=== PATIENT | female | born 1930 | race Caucasian/White ===

== ENCOUNTER 2016-08-06 14:39 | Emergency (ER) | payer SELFPAY ==
[~2016-08-06] VITALS: Ht 170.2 cm; Wt 85.0 kg
[2016-08-06 14:55] VITALS: Ht 170.2 cm; Wt 85.0 kg
[2016-08-06] MEDS ORDERED: IPRATROPIUM (NEB) 0.5 MG/2.5 ML AMP INH STA (15:20)
[2016-08-06] MEDS ORDERED: ASPIRIN 81 MG TAB PO STA (15:20)
[2016-08-06] MEDS ORDERED: ALBUTEROL 0.083% (NEB) 2.5 MG/3 ML AMP INH STA ×2 (15:20→16:59)
[2016-08-06] MEDS ORDERED: METHYLPREDNISOLONE 125 MG INJ IV STA (15:20)
[2016-08-06 15:28] LABS: ADD SCAN DIFF NO
[2016-08-06 15:31] LABS: BASOPHILS % 0.5 % (0.0-2.0); EOSINOPHILS # 0.1 10^3/ul (0.0-0.5); EOSINOPHILS % 0.9 % (0.0-7.0); HEMATOCRIT 45.5 % (37.0-47.0); HEMOGLOBIN 14.4 g/dl (12.0-16.0); LYMPHOCYTES # 3.8 10^3/ul (0.8-2.9); LYMPHOCYTES % 46.7 % (15.0-51.0); MEAN CORPUSCULAR HEMOGLOBIN 28.4 pg (29.0-33.0); MEAN CORPUSCULAR HGB CONC 31.6 g/dl (32.0-37.0); MEAN CORPUSCULAR VOLUME 89.7 fl (82.0-101.0); MEAN PLATELET VOLUME 11.7 fl (7.4-10.4); MONOCYTE # 0.5 10^3/ul (0.3-0.9); NEUTROPHIL # 3.8 10^3/ul (1.6-7.5); NEUTROPHILS % 45.8 % (39.0-77.0); PLATELET COUNT 245 10^3/UL (140-415); RED BLOOD COUNT 5.07 10^6/ul (4.20-5.40); RED CELL DISTRIBUTION WIDTH 15.9 % (11.5-14.5); WHITE BLOOD COUNT 8.2 10^3/ul (4.8-10.8)
[2016-08-06 15:48] LABS: INR 0.98
[2016-08-06 15:49] LABS: PARTIAL THROMBOPLASTIN TIME 28.9 Sec (25.0-35.0)
[2016-08-06 16:01] LABS: ALBUMIN 4.3 g/dl (3.3-4.9); CHLORIDE 102 mmol/L (97-110)
[2016-08-06 16:02] LABS: ADD UMIC YES; URINE BILIRUBIN (Dip) NEGATIVE (NEGATIVE); URINE BLOOD (Dip) TRACE (NEGATIVE); URINE COLOR LT. YELLOW (YELLOW); URINE GLUCOSE (Dip) NEGATIVE (NEGATIVE); URINE KETONES (Dip) NEGATIVE (NEGATIVE); URINE LEUKOCYTE ESTERASE (Dip) TRACE (NEGATIVE); URINE NITRITE (Dip) NEGATIVE (NEGATIVE); URINE TOTAL PROTEIN (Dip) NEGATIVE (NEGATIVE); URINE UROBILINOGEN (Dip) 0.2 E.U./dL (0.1-1.0)
[2016-08-06 16:02] LABS: POTASSIUM 4.2 mmol/L (3.5-5.1); SODIUM 138 mmol/L (135-144)
[2016-08-06 16:04] LABS: ALBUMIN/GLOBULIN RATIO 1.02; ALKALINE PHOSPHATASE 106 IU/L (42-121); ANION GAP 15 (8-16); ASPARTATE AMINO TRANSFERASE 32 IU/L (15-46); BILIRUBIN,INDIRECT 0.2 mg/dl (0-1.1); BILIRUBIN,TOTAL 0.2 mg/dl (0.2-1.3); CARBON DIOXIDE 25 mmol/L (21-31); CREATININE 0.76 mg/dl (0.44-1.00); TOTAL PROTEIN 8.5 g/dl (6.1-8.1)
[2016-08-06 16:05] LABS: ALANINE AMINOTRANSFERASE 19 IU/L (13-69); BLOOD UREA NITROGEN 18 mg/dl (7-20); CALCIUM 9.3 mg/dl (8.4-10.2); GLUCOSE 113 mg/dl (70-220)
[2016-08-06 16:12] LABS: B-TYPE NATRIURETIC PEPTIDE 993 PG/ML (0-450)
[2016-08-06 16:14] LABS: BACTERIA,URINE FEW; SQUAMOUS EPITHELIAL CELL,UR MANY; URINE RBCS 0-2 /HPF (0)
[2016-08-06 16:17] LABS: TROPONIN-I < 0.012 ng/ml (0.00-0.12)
--- NOTE | 2016-08-06 16:44 | RADRPT ---
PROCEDURE: XR Chest. CLINICAL INDICATION: Shortness of breath. TECHNIQUE: Portable AP upright view of the chest was obtained. COMPARISON: None. FINDINGS: The cardiomediastinal silhouette is mildly enlarged with a single chamber right subclavian approach cardiac pacemaker. Areas of bronchiectasis are suspected scattered throughout both lungs and there is a calcified peripheral left upper lobe nodule of 8 mm most likely a granuloma. Hyperinflation of the lungs with flattening of the diaphragm cannot exclude chronic obstructive pulmonary disease. T here is no evidence for pleural effusion, pneumothorax or pulmonary vascular congestion. The osseou s structures are intact with no evidence for acute abnormality. Calcification is seen within the aor ta. RPTAT:HJJR IMPRESSION: 1. Hyperinflation of the lungs cannot exclude chronic obstructive pulmonary disease. 2. Calcified granuloma left upper lobe. 3. Suspected scattered bronchiectasis changes. 4. Mild cardiac silhouette enlargement and cardiac pacemaker without congestive heart failure mohamud rn. 5. Aortic atherosclerosis is present. Physician Chito Date Time Electronically viewed and signed by Physician Chito on 08/06/2016 16:44 /
[2016-08-06] MEDS ORDERED: AZITHROMYCIN 250 MG TAB PO STA (16:59)
[2016-08-06] MEDS ORDERED: ALBU8.5H3 INH (17:13)
[2016-08-06] MEDS ORDERED: AZIT250T94 PO (17:13)
[2016-08-06] MEDS ORDERED: PRED20TA PO (17:13)
[2016-08-06 17:27] VITALS: BP 118/84; PULSE 66; RESP 18; TEMP 98.2
--- NOTE | 2016-08-06 17:56 | ERD ---
ER Documentation Chief Complaint Date/Time DATE: 08/06/16 TIME: 17:38 Chief Complaint BIB RA 90 FAMILY CALLED 911 DUE TO "HIGH BP" AND WHEEZING HPI 85-year-old female with a history of hypertension, pacemaker, 3 strokes with mild left-sided deficits, presenting with ambulance for shortness of breath. She states that for the past 3-4 days she has not been feeling well and has had a cough with shortness of breath. She has associated chest pain that's described as a tightness that is constant. She has a wet cough but has not had phlegm production. She endorses chills but no measured fevers. She denies headache, abdominal pain, diarrhea or constipation. She also complains of difficulty urinating but is able to urinate. Patient is from [place] and arrived about 2 weeks ago. ROS All systems reviewed and are negative except as per history of present illness. Medications Home Meds Active Scripts Albuterol Sulfate* (Proair HFA*) 8.5 Gm Hfa.aer.ad, 2 PUFF INH Q4H Y for WHEEZING AND SOB, #1 INHALER Prov:CURT COFFEY MD 08/06/16 Prednisone* (Prednisone*) 20 Mg Tab, 40 MG PO DAILY for 4 Days, TAB start 08/07 Prov:CURT COFFEY MD 08/06/16 Azithromycin* (Zithromax*) 250 Mg Tablet, 250 MG PO DAILY for 4 Days, TAB start 07/28/16 Prov:CURT COFFEY MD 08/06/16 PMhx/Soc History of Surgery: Yes (PACEMAKER, CATARACT SURGERY L EYE, POLYPECTOMY) Anesthesia Reaction: No Hx Neurological Disorder: Yes (CVA X3 2004,2011,2014) Hx Respiratory Disorders: No Hx Cardiac Disorders: Yes (HTN) Hx Psychiatric Problems: No Hx Miscellaneous Medical Probl: Yes (DM) Hx Alcohol Use: Yes (OCCASIONALLY) Hx Substance Use: No Hx Tobacco Use: No Smoking Status: Never smoker FmHx Family History: No diabetes Physical Exam Vitals Vital Signs Date Time Temp Pulse Resp B/P Pulse Ox O2 Delivery O2 Flow Rate FiO2 08/06/16 17:27 98.2 66 18 118/84 100 Room Air 08/06/16 17:16 67 20 97 21 08/06/16 16:10 64 22 98 21 08/06/16 15:27 Nasal Cannula 08/06/16 15:16 67 151/71 08/06/16 14:55 98.2 64 20 144/74 96 Physical Exam Const: No apparent distress, well-appearing, nontoxic, speaking in full sentences Head: Atraumatic Eyes: Normal Conjunctiva ENT: Normal External Ears, Nose and Mouth. Neck: Full range of motion. No JVD. No meningismus. Resp: No tachypnea. Diffuse expiratory coarse wheezing, no rales Cardio: Regular rate and rhythm, no murmurs. 2+ distal pulses, equal bilaterally Abd: Soft, non tender, non distended. Normal bowel sounds Skin: No petechiae or rashes Back: No midline or flank tenderness Ext: No cyanosis, or edema Neur: Awake and alert and oriented 3, no facial asymmetry, strength and sensations intact in all 4 extremities Psych: Normal Mood and Affect Result Diagram: 08/06/16 1520 08/06/16 1520 Results 24 hrs Laboratory Tests Test 08/06/16 15:20 08/06/16 15:55 White Blood Count 8.210^3/ul Red Blood Count 5.0710^6/ul Hemoglobin 14.4g/dl Hematocrit 45.5% Mean Corpuscular Volume 89.7fl Mean Corpuscular Hemoglobin 28.4pg Mean Corpuscular Hemoglobin Concent 31.6g/dl Red Cell Distribution Width 15.9% Platelet Count 47736^3/UL Mean Platelet Volume 11.7fl Neutrophils % 45.8% Lymphocytes % 46.7% Monocytes % 6.0% Eosinophils % 0.9% Basophils % 0.5% Nucleated Red Blood Cells % 0.0/100WBC Neutrophils # 3.810^3/ul Lymphocytes # 3.810^3/ul Monocytes # 0.510^3/ul Eosinophils # 0.110^3/ul Basophils # 0.010^3/ul Nucleated Red Blood Cells # 0.010^3/ul Prothrombin Time 13.0Sec Prothrombin Time Ratio 1.0 INR International Normalized Ratio 0.98 Activated Partial Thromboplast Time 28.9Sec Sodium Level 138mmol/L Potassium Level 4.2mmol/L Chloride Level 102mmol/L Carbon Dioxide Level 25mmol/L Anion Gap 15 Blood Urea Nitrogen 18mg/dl Creatinine 0.76mg/dl Glucose Level 113mg/dl Calcium Level 9.3mg/dl Total Bilirubin 0.2mg/dl Direct Bilirubin 0.00mg/dl Indirect Bilirubin 0.2mg/dl Aspartate Amino Transf (AST/SGOT) 32IU/L Alanine Aminotransferase (ALT/SGPT) 19IU/L Alkaline Phosphatase 106IU/L Troponin I < 0.012ng/ml B-Type Natriuretic Peptide 993PG/ML Total Protein 8.5g/dl Albumin 4.3g/dl Globulin 4.20g/dl Albumin/Globulin Ratio 1.02 Urine Color LT. YELLOW Urine Clarity HAZY Urine pH 5.5 Urine Specific [place] 1.015 Urine Ketones NEGATIVE Urine Nitrite NEGATIVE Urine Bilirubin NEGATIVE Urine Urobilinogen 0.2 E.U./dL Urine Leukocyte Esterase TRACE Urine Microscopic RBC 0-2/HPF Urine Microscopic WBC 0-2/HPF Urine Squamous Epithelial Cells MANY Urine Bacteria FEW Urine Hemoglobin TRACE Urine Glucose NEGATIVE% Urine Total Protein NEGATIVE Current Medications Medications (Trade) Dose Ordered Sig/Anders Route PRN Reason Start Time Stop Time Status Last Admin Dose Admin Albuterol (Proventil 0.083% (Neb)) 5 mg ONCE STAT INH 08/06/16 15:20 08/06/16 15:24 DC 08/06/16 16:09 Ipratropium [place] (Atrovent 0.02% (Neb)) 0.5 mg ONCE STAT INH 08/06/16 15:20 08/06/16 15:24 DC 08/06/16 16:09 Methylprednisolone Sodium Succinate (Solu-Medrol) 125 mg ONCE STAT IV 08/06/16 15:20 08/06/16 15:24 DC 08/06/16 15:37 Aspirin (Aspirin) 162 mg ONCE STAT PO 08/06/16 15:20 08/06/16 15:24 DC 08/06/16 15:37 Albuterol (Proventil 0.083% (Neb)) 5 mg ONCE STAT INH 08/06/16 16:59 08/06/16 17:00 DC 08/06/16 17:16 Azithromycin (Zithromax) 500 mg ONCE STAT PO 08/06/16 16:59 08/06/16 17:00 DC Procedures/MDM EMERGENT LABS AND DIAGNOSTIC STUDIES: Lab Results above were reviewed and interpreted by me. No significant abnormalities other than mild elevation in BNP 12-lead EKG was interpreted by Anabela Coffey MD: V paced rhythm, demand pacemaker Left bundle branch block pattern No acute ST or T wave changes suggestive of acute ischemia or STEMI. Radiology Results as interpreted by Radiology below were reviewed by Lizzette Coffey MD: Chest x-ray: IMPRESSION: 1. Hyperinflation of the lungs cannot exclude chronic obstructive pulmonary disease. 2. Calcified granuloma left upper lobe. 3. Suspected scattered bronchiectasis changes. 4. Mild cardiac silhouette enlargement and cardiac pacemaker without congestive heart failure pattern. 5. Aortic atherosclerosis is present. Physician Chito Date Time Electronically viewed and signed by Vamsi Milligan Physician on 08/06/2016 16:44 Initial Nursing notes reviewed. Previous Medical Records requested via the Electronic Health Record. EMERGENCY DEPARTMENT COURSE / MEDICAL DECISION MAKING: Patient is presenting with symptoms consistent with bronchitis, likely viral in etiology. Her vitals are stable without hypoxia or fever. I have a low suspicion for pneumonia. Chest x-ray shows changes consistent with COPD. The patient does endorse secondhand smoke for many years of her life. However she has never had wheezing or use an inhaler. Her BNP was elevated but I do not think her symptoms today are secondary to CHF. I have a low suspicion for aortic dissection, acute coronary syndrome, or pulmonary embolism. She was given med neb treatments with improvement. Her labs showed no other abnormalities. Her urinalysis did not indicate UTI. She was given steroids and azithromycin. Patients symptoms have stabilized while in the department after therapy. Vitals and respiratory status are stable. Patient is appropriate for outpatient supportive treatment and continued follow up with PCP in the next 2 days. If symptoms are not improving or worsening, patient instructed to return to ED for repeat evaluation. She will be discharged with prednisone, albuterol, and azithromycin. Patient's blood pressure was elevated (>120/80) but appears stable without evidence of hypertensive emergency or urgency. The patient was counseled about the risks of hypertension and urged to pursue outpatient monitoring and therapy within a week with their primary care physician. Departure Diagnosis: Primary Impression: Bronchitis, acute, with bronchospasm Additional Impression: Asymptomatic hypertension Condition: Stable Patient Instructions: Bronchitis With Wheezing (Adult), Hypertension, Established Referrals: COMMUNITY CLINICS YOU HAVE RECEIVED A MEDICAL SCREENING EXAM AND THE RESULTS INDICATE THAT YOU DO NOT HAVE A CONDITION THAT REQUIRES URGENT TREATMENT IN THE EMERGENCY DEPARTMENT. FURTHER EVALUATION AND TREATMENT OF YOUR CONDITION CAN WAIT UNTIL YOU ARE SEEN IN YOUR DOCTORS OFFICE WITHIN THE NEXT 1-2 DAYS. IT IS YOUR RESPONSIBILITY TO MAKE AN APPOINTMENT FOR FOLOW-UP CARE. IF YOU HAVE A PRIMARY DOCTOR --you should call your primary doctor and schedule an appointment IF YOU DO NOT HAVE A PRIMARY DOCTOR YOU CAN CALL OUR PHYSICIAN REFERRAL HOTLINE AT IF YOU CAN NOT AFFORD TO SEE A PHYSICIAN YOU CAN CHOSE FROM THE FOLLOWING [facility] [address] [facility]. [facility] [address] [facility] [address] [facility] [facility] [address] [facility] [facility] [address] [facility]. [facility]. [address] Additional Instructions: Return to the ER for any worsening symptoms. Follow-up with a doctor in 1-2 days. CURT COFFEY MD Aug 06, 2016 17:56
[2016-08-06] MEDS ORDERED: [UNRECOGNIZED DRUG - OTHER] PO (18:06)
[2016-08-06] MEDS ORDERED: VALS160T20 PO (18:08)
[2016-08-06] MEDS ORDERED: NIFE10CA19 PO (18:08)
[2016-08-06] MEDS ORDERED: CLOP75TA4 PO (18:09)
[2016-08-06] MEDS ORDERED: TORS5TAB10 PO (18:09)
[2016-08-06] MEDS ORDERED: BETASERON PO (18:15)
[2016-08-06] MEDS ORDERED: [UNRECOGNIZED DRUG - CODE] PO (18:16)
[2016-08-06] MEDS ORDERED: METO-448 PO (18:17)
== END 2016-08-06 17:49 | disposition home or self-care (01) ==
LOC: E/R 14:39
DX: J20.9 Acute bronchitis, unspecified (principal); I10 Essential (primary) hypertension; E11.9 Type 2 diabetes mellitus without complications; Z95.0 Presence of cardiac pacemaker
CPT/HCPCS: 71010; 80053; 81001; 81003; 83880; 84484; 85025; 85610; 85730; 93005; 94640; 94664; J2930; 36415; 96374

== ENCOUNTER 2016-12-03 10:37 | Inpatient (IN) | payer MEDICAID ==
[~2016-12-03] VITALS: Ht 152.4 cm; Wt 77.3 kg
[~2016-12-03 10:37] MED LIST: ALBU8.5H3 INH; AZIT250T94 PO; BETASERON PO; CLOP75TA4 PO; METO-448 PO; NIFE10CA19 PO; PRED20TA PO; TORS5TAB10 PO; VALS160T20 PO; [UNRECOGNIZED DRUG - CODE] PO; [UNRECOGNIZED DRUG - OTHER] PO
[2016-12-03 10:59] LABS: BASOPHILS % 0.5 % (0.0-2.0); EOSINOPHILS # 0.1 10^3/ul (0.0-0.5); EOSINOPHILS % 0.8 % (0.0-7.0); HEMATOCRIT 40.8 % (37.0-47.0); HEMOGLOBIN 13.2 g/dl (12.0-16.0); LYMPHOCYTES # 2.5 10^3/ul (0.8-2.9); LYMPHOCYTES % 41.3 % (15.0-51.0); MEAN CORPUSCULAR HEMOGLOBIN 29.4 pg (29.0-33.0); MEAN CORPUSCULAR HGB CONC 32.4 g/dl (32.0-37.0); MEAN CORPUSCULAR VOLUME 90.9 fl (82.0-101.0); MEAN PLATELET VOLUME 11.2 fl (7.4-10.4); MONOCYTE # 0.5 10^3/ul (0.3-0.9); MONOCYTES % 7.4 % (0.0-11.0); NEUTROPHILS % 49.8 % (39.0-77.0); PLATELET COUNT 191 10^3/UL (140-415); RED BLOOD COUNT 4.49 10^6/ul (4.20-5.40); RED CELL DISTRIBUTION WIDTH 15.6 % (11.5-14.5); WHITE BLOOD COUNT 6.1 10^3/ul (4.8-10.8)
[2016-12-03] MEDS ORDERED: ASPIRIN 81 MG TAB PO STA (11:20)
[2016-12-03] MEDS ORDERED: NITROGLYCERIN 2% 1 GM OINT PKT TD STA (11:20)
--- NOTE | 2016-12-03 11:22 | ERA ---
ER Documentation Chief Complaint Date/Time DATE: 12/03/16 TIME: 11:19 Chief Complaint CHEST PAIN / SOB HPI 86-year-old female Tunisian-speaking, family member is acting as an traffic control technician. The patient starts to explain that she started describe chest pressure that started yesterday evening that feels like a heaviness on her chest. She denies any migratory and her back pain no fevers or chills no cough. She states mild improvement with aspirin and nitro via EMS. ROS All systems reviewed and are negative except as per history of present illness. Medications Home Meds Active Scripts Albuterol Sulfate* (Proair HFA*) 8.5 Gm Hfa.aer.ad, 2 PUFF INH Q4H Y for WHEEZING AND SOB, #1 INHALER Prov:CURT METZGER MD 08/06/16 Prednisone* (Prednisone*) 20 Mg Tab, 40 MG PO DAILY for 4 Days, TAB start 08/07 Prov:CURT METZGER MD 08/06/16 Azithromycin* (Zithromax*) 250 Mg Tablet, 250 MG PO DAILY for 4 Days, TAB start 07/28/16 Prov:CURT METZGER MD 08/06/16 Reported Medications Metoprolol Tartrate* (Lopressor*) 25 Mg Tab, 12.5 MG PO DAILY Y for PRN, #60 TAB 08/06/16 Tolbutamide (Tolbutamide) Unknown Strength Tablet, MG PO DAILY Y for PRN, TAB 08/06/16 [Betaseron] No Conflict Check, PO BID TAKE 1/2 TAB 08/06/16 Clopidogrel Bisulfate* (Clopidogrel Bisulfate*) 75 Mg Tablet, 75 MG PO DAILY, # 30 TAB 08/06/16 Torsemide (Torsemide) Unknown Strength Tablet, 1 TAB PO DAILY, TAB 08/06/16 Valsartan* (Diovan*) 160 Mg Tablet, 80 MG PO BID, TAB 08/06/16 Nifedipine* (Procardia*) 10 Mg Capsule, 10 MG PO Q6 Y for PRN, CAP 08/06/16 [Cordicet] No Conflict Check, PO DAILY Y for PRN 08/06/16 Allergies Allergies: Coded Allergies: No Known Allergy (Unverified , 08/06/16) PMhx/Soc History of Surgery: Yes (PACEMAKER, CATARACT SURGERY L EYE, POLYPECTOMY) Anesthesia Reaction: No Hx Neurological Disorder: Yes (CVA X3 2004,2011,2014) Hx Respiratory Disorders: No Hx Cardiac Disorders: Yes (HTN) Hx Psychiatric Problems: No Hx Miscellaneous Medical Probl: Yes (DM) Hx Alcohol Use: Yes (OCCASIONALLY) Hx Substance Use: No Hx Tobacco Use: No Smoking Status: Never smoker FmHx Family History: No diabetes Physical Exam Vitals Vital Signs Date Time Temp Pulse Resp B/P Pulse Ox O2 Delivery O2 Flow Rate FiO2 12/03/16 12:10 98.7 70 16 107/77 100 Room Air 12/03/16 10:46 98.1 70 20 141/87 99 12/03/16 10:46 98.1 70 16 141/87 18 Room Air Physical Exam General: Well developed, well nourished, no acute distress Head: Normocephalic, atraumatic. Eyes: Pupils equally reactive, EOM intact ENT: Moist mucous membranes Neck: Supple, no lymphadenopathy Respiratory: Lungs clear bilaterally, no distress Cardiovascular: RRR, no murmurs, rubs, or gallops Abdominal: Soft, non-tender, non-distended, no peritoneal signs : Deferred MSK: No edema, no unilateral swelling, 5/5 strength Neurologic: Alert and oriented, moving all extremities, normal speech, no focal weakness, no cerebellar signs Skin: No rash Psych: Normal mood Result Diagram: 12/03/16 1047 12/03/16 1047 Results 24 hrs Laboratory Tests Test 12/03/16 10:47 White Blood Count 6.110^3/ul Red Blood Count 4.4910^6/ul Hemoglobin 13.2g/dl Hematocrit 40.8% Mean Corpuscular Volume 90.9fl Mean Corpuscular Hemoglobin 29.4pg Mean Corpuscular Hemoglobin Concent 32.4g/dl Red Cell Distribution Width 15.6% Platelet Count 45207^3/UL Mean Platelet Volume 11.2fl Neutrophils % 49.8% Lymphocytes % 41.3% Monocytes % 7.4% Eosinophils % 0.8% Basophils % 0.5% Nucleated Red Blood Cells % 0.0/100WBC Neutrophils # 3.010^3/ul Lymphocytes # 2.510^3/ul Monocytes # 0.510^3/ul Eosinophils # 0.110^3/ul Basophils # 0.010^3/ul Nucleated Red Blood Cells # 0.010^3/ul Prothrombin Time 14.1Sec Prothrombin Time Ratio 1.1 INR International Normalized Ratio 1.09 Activated Partial Thromboplast Time 30.5Sec Sodium Level 143mmol/L Potassium Level 4.0mmol/L Chloride Level 102mmol/L Carbon Dioxide Level 27mmol/L Anion Gap 18 Blood Urea Nitrogen 19mg/dl Creatinine 0.91mg/dl Glucose Level 108mg/dl Calcium Level 9.4mg/dl Troponin I < 0.012ng/ml B-Type Natriuretic Peptide 1000PG/ML Current Medications Medications (Trade) Dose Ordered Sig/Anders Route PRN Reason Start Time Stop Time Status Last Admin Dose Admin Aspirin (Aspirin) 162 mg ONCE STAT PO 12/03/16 11:20 12/03/16 11:23 DC 12/03/16 11:30 Nitroglycerin (Nitroglycerin 2% Oint) 1 inch ONCE STAT TD 12/03/16 11:20 12/03/16 11:23 DC 12/03/16 11:31 Ondansetron HCl (Zofran Inj) 4 mg ER BRIDGE PRN IV NAUSEA AND/OR VOMITING 12/03/16 13:00 12/04/16 12:59 Acetaminophen (Tylenol Tab) 650 mg ER BRIDGE PRN PO MILD PAIN/FEVER 12/03/16 13:00 12/04/16 12:59 Procedures/MDM EKG, MONITORS, & DIAGNOSTIC IMAGING: EKG: I reviewed and interpreted a 12-lead EKG. Rhythm: Ventricularly paced rhythm Ectopy: None Intervals: No abnormalities ST segments: No elevations or depressions T waves: No contiguous inversions Repeat EKG: EKG: I reviewed and interpreted a 12-lead EKG. Rhythm: Ventricularly paced rhythm Ectopy: None Intervals: No abnormalities ST segments: No elevations or depressions T waves: No contiguous inversions Chest x-ray: I reviewed and interpreted a 1 view of the chest Mediastinum: No enlargement Cardiac silhouette: No cardiomegaly Airspace: Clear lung benitez bilaterally without evidence of pneumothorax Bones: No evidence of fracture LAB INTERPRETATION: Negative troponin MEDICAL DECISION MAKING: The patient's history, physical exam and clinical presentation is concerning for possible cardiogenic etiology and acute coronary syndrome. Based on the patient's clinical exam and history and risk factors, I have a much lower clinical concern for pulmonary embolism, acute aortic dissection, pneumothorax, pneumonia, cardiac tamponade HEART Score: 6 MACE Rate: 16.6% Shared Decision Making: We had a conversation regarding risk stratification, MACE rate, and the risks, benefits, alternatives of disposition planning options. Disposition planning: Given age, risk factor profile strong recommend addition of hospitalization. ER COURSE: Aspirin completed, nitro paste applied. Symptoms improving. I kept the patient and/or family informed of laboratory and diagnostic imaging results throughout the emergency room course. DISPOSITION PLAN: Telemetry admission for management of chest pain CONSULTATION: Accepting care team and consultations: I discussed the current laboratory data, diagnostic imaging and emergency care provided. Admitting team: Dr. Harris Admitting team indication: Insurance directed Departure Diagnosis: Primary Impression: Chest pain Qualified Code: R07.9 - Chest pain, unspecified type Condition: Stable CARLOS FERNANDES MD Dec 03, 2016 11:22
[2016-12-03 11:41] LABS: ANION GAP 18 (8-16); BLOOD UREA NITROGEN 19 mg/dl (7-20); CALCIUM 9.4 mg/dl (8.4-10.2); CARBON DIOXIDE 27 mmol/L (21-31); CHLORIDE 102 mmol/L (97-110); CREATININE 0.91 mg/dl (0.44-1.00); GLUCOSE 108 mg/dl (70-220); SODIUM 143 mmol/L (135-144)
[2016-12-03 11:46] LABS: INR 1.09; PROTIME 14.1 Sec (12.2-14.2); PT RATIO 1.1
[2016-12-03 11:47] LABS: PARTIAL THROMBOPLASTIN TIME 30.5 Sec (25.0-35.0)
--- NOTE | 2016-12-03 11:51 | RADRPT ---
PROCEDURE: XR Chest. CLINICAL INDICATION: Chest Pain. TECHNIQUE: Single frontal chest x-ray. COMPARISON: 08/06/2016 FINDINGS: The lungs are clear of acute infiltrates, edema, effusions, or masses. There is old calcified granul haja in the left upper lung. There is a right-sided single chamber cardiac pacer in place.. Mild car diomegaly is present. Calcific atherosclerosis of the aorta is present.. The osseous structures are intact. IMPRESSION: No acute cardiopulmonary disease. Right-sided cardiac pacer in place. RPTAT: JJ .Junior Durbin MD, Date Time Electronically viewed and signed by .Junior Durbin MD, MD on 12/03/2016 11:51 .L/
[2016-12-03 11:53] LABS: B-TYPE NATRIURETIC PEPTIDE 1000 PG/ML (0-450); TROPONIN-I < 0.012 ng/ml (0.00-0.12)
[2016-12-03] MEDS ORDERED: ONDANSETRON 4 MG INJ IV PRN (13:00)
[2016-12-03] MEDS ORDERED: ACETAMINOPHEN 325 MG TAB PO PRN (13:00)
[2016-12-03] MEDS ORDERED: morphine 2 MG INJ ONE (13:30)
[2016-12-03] MEDS ORDERED: ALBUTEROL 18 GM INHALER INH PRN (13:30)
[2016-12-03] MEDS ORDERED: RIVA20TA PO (14:53)
[2016-12-03] MEDS ORDERED: LOSA50TA6 PO (14:53)
[2016-12-03] MEDS ORDERED: ASPI-664 PO (14:53)
[2016-12-03] MEDS ORDERED: ATOR10TA65 PO (14:54)
[2016-12-03] MEDS ORDERED: MAXIDE PO (14:58)
[2016-12-03 15:50] VITALS: TEMP 97.1
[2016-12-03 16:30] VITALS: BP 142/70; PULSE 70; RESP 18
[2016-12-03 16:34] VITALS: Ht 152.4 cm; Wt 77.3 kg
[2016-12-03 18:00] VITALS: PULSE 69
--- NOTE | 2016-12-03 18:19 | HP ---
Date/Time of Note Date/Time of Note DATE: 12/03/16 TIME: 18:15 Assessment/Plan VTE Prophylaxis VTE Prophylaxis Intervention: SCD's Lines/Catheters IV Catheter Type (from Nrs): Saline Lock Assessment/Plan Assessment/Plan 86 yo F with pmhx CVA, ?AFib, CAD sp stent, h/o PM placement presents for CP and SOB, d/dx includes ACS v acute on chronic CHF v other PLAN serial trops check echo trial of lasix cont home meds cardiac diet HPI/ROS Admit Date/Time Admit Date/Time Dec 03, 2016 at 12:46 Hx of Present Illness 86 yo F with pmhx multiple CVAs, h/o PM placement for "arrhythmia," h/o CAD, HTN , ?AFib presents for 1 day of R sided chest heaviness. Pt reports discomfort started yesterday and has been worsening since last night. Also has had SOB x several years worsening in the past 2 mos. 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 No orthopnea. No LE swelling. Pt reports chronic LLE weakness since her stroke PMH/Family/Social Social History lives in the community Smoking Status: Never smoker Exam/Review of Systems Vital Signs Vitals Vital Signs Date Time Temp Pulse Resp B/P Pulse Ox O2 Delivery O2 Flow Rate FiO2 12/03/16 16:30 98.8 70 18 142/70 98 Room Air Exam Exam nad face symmetric. CN 2-12 intact no mrg lungs clear abd soft trace LE edema 5/5 strength bl UEs 5/5 strength RLE, 4/5 strength LLE (old per pt) ChemP noted, BNP slightly high CXR clear Labs Result Diagram: 12/03/16 1047 12/03/16 1047 Medications Medications Current Medications Clopidogrel Bisulfate (plaVIX) 75 mg DAILY PO ; Start 12/04/16 at 09:00 Metoprolol Succinate (Toprol Xl) 25 mg DAILY PO ; Start 12/04/16 at 09:00 Nifedipine (Procardia Xl) 30 mg DAILY PO ; Start 12/04/16 at 09:00 Valsartan (Diovan) 80 mg BID PO ; Start 12/03/16 at 21:00 ALBERTO MICHELLE MD Dec 03, 2016 18:19
[2016-12-03 18:30] LABS: CREATINE KINASE 40 IU/L (23-200)
[2016-12-03 19:14] LABS: TROPONIN-I < 0.012 ng/ml (0.00-0.12)
[2016-12-03 20:05] VITALS: BP 139/66; RESP 20
[2016-12-03 20:28] VITALS: PULSE 69
[2016-12-03] MEDS ORDERED: VALSARTAN 80 MG TAB PO SCH (21:00)
[2016-12-03] MEDS ORDERED: ATORVASTATIN 10 MG TAB PO SCH (21:00)
[2016-12-03] MEDS: LOSARTAN 50 MG TAB PO SCH (22:07)
--- NOTE | 2016-12-03 22:10 | RADRPT ---
Echocardiogram Report Patient Name: ANAND MAHMOOD Gender: Female Date: 1930 Study Date: 03-Dec-2016 Beck Operator: Lizzette Bagley RDCS Location: [facility] Ref. Physician: ALBERTO MICHELLE Quality: Adequate Procedures: Transthoracic echocardiogram with complete 2D, M-Mode, and doppler examination. Indications: Elevated BNP. Chest Pain. 2D/M Mode Doppler Measurement Value Normal Ranges Measurement Value Normal Ranges LVIDd 2D 4.2 3.5 - 5.6 cm AV Peak Thom 1.0 m/sec LVIDs 2D 3.0 2.1 - 4.1 cm AV Peak PG 4.0 mmHg FS 2D 27.6 % LVOT Peak Thom 1.1 m/sec LVPWd 2D 1.3 0.6 - 1.1 cm LVOT Peak PG 4.0 mmHg IVSd 2D 1.4 0.6 - 1.1 cm MV E Peak Thom 1.2 m/sec IVS/LVPW 2D 1.0 TR Peak Thom 2.7 m/sec AoR Diam 2D 2.7 2.0 - 3.7 cm TR Peak PG 29.0 mmHg LA/Ao 2D 2 0 - 1 RVSP 37.0 mmHg EDV 2D 74.1 cm3 ESV 2D 28.1 cm3 LA Dimen 2D 5.0 2.3 - 4.0 cm Findings Left Ventricle: Normal left ventricular systolic function. Normal left ventricular cavity size. Mild to moderate concentric left ventricular hypertrophy. Ejection fraction is visually estimated at 60 %. Tissue Doppler/Mitral Doppler indices are consistent with pseudonormalization with mildly elevated left atrial pressure (Stage II diastolic dysfunction). Right Ventricle: Normal right ventricular systolic function. Mild enlargement of right ventricle. Left Atrium: There is severe enlargement of left atrium. Right Atrium: There is severe enlargement of right atrium. Mitral Valve: Mitral valve leaflets appear mildly thickened. Mild mitral annular calcification. Mild mitral valve regurgitation. The regurgitation jet is eccentrically directed which may underestimate the severity of mitral regurgitation. Aortic Valve: Normal appearance of the aortic valve. No significant aortic stenosis or insufficiency. Tricuspid Valve: Tricuspid valve not well visualized. Estimated peak PA systolic pressure 37 mmHg. There is trace tricuspid regurgitation. Pulmonic Valve: Pulmonic valve not well visualized. Pericardium: Normal pericardium with no significant pericardial effusion. Aorta: Normal aortic root. IVC: Normal size and no respiratory collapse consistent with elevated right atrial pressure. Conclusions Normal left ventricular systolic function. Normal left ventricular cavity size. Mild to moderate concentric left ventricular hypertrophy. Ejection fraction is visually estimated at 60 %. Tissue Doppler/Mitral Doppler indices are consistent with pseudonormalization with mildly elevated left atrial pressure (Stage II diastolic dysfunction). Normal right ventricular systolic function. Mild enlargement of right ventricle. There is severe enlargement of left atrium. There is severe enlargement of right atrium. Mild mitral valve regurgitation. The regurgitation jet is eccentrically directed which may underestimate the severity of mitral regurgitation. No significant aortic stenosis or insufficiency. Estimated peak PA systolic pressure 37 mmHg. There is trace tricuspid regurgitation. Normal pericardium with no significant pericardial effusion. Electronically Signed By: Everardo Galeano 03-Dec-2016 22:09:15 -0700 Patient Name: ANAND MAHMOOD Study Date: 03-Dec-2016 [id number]
[2016-12-03 23:15] LABS: CREATINE KINASE 35 IU/L (23-200)
[2016-12-03] MEDS ORDERED: NITROGLYCERIN (SL) 0.4 MG TAB ONE (23:23)
[2016-12-03 23:25] VITALS: BP 154/70; RESP 20
[2016-12-03 23:27] LABS: CK-MB 0.64 ng/ml (0.0-2.4)
[2016-12-03 23:30] LABS: TROPONIN-I < 0.012 ng/ml (0.00-0.12)
[2016-12-03] MEDS ORDERED: morphine 2 MG INJ IV ONE (23:30)
[2016-12-03] MEDS ORDERED: NITROGLYCERIN (SL) 0.4 MG TAB SL ONE (23:30)
[2016-12-04] VITALS (9 sets, daily range): BP systolic 118–136; BP diastolic 63–79; PULSE 69–90; RESP 18–19
[2016-12-04] MEDS ORDERED: AL HYDROX/MG HYDROX/SIMETH 30 ML CUP PO ONE
[2016-12-04] MEDS ORDERED: NITROGLYCERIN (SL) 0.4 MG TAB SL PRN (00:30)
[2016-12-04] MEDS ORDERED: ACETAMINOPHEN 325 MG TAB PO PRN (00:30)
[2016-12-04] MEDS ORDERED: FUROSEMIDE 20 MG TAB PO SCH (06:00)
[2016-12-04 08:28] LABS: CALCIUM 8.9 mg/dl (8.4-10.2); CREATININE 0.85 mg/dl (0.44-1.00); POTASSIUM 4.3 mmol/L (3.5-5.1)
[2016-12-04] MEDS ORDERED: ASPIRIN (EC) 81 MG TAB PO SCH (09:00)
[2016-12-04] MEDS ORDERED: CLOPIDOGREL 75 MG TAB PO SCH (09:00)
[2016-12-04] MEDS ORDERED: METOPROLOL (XL) 25 MG TAB PO SCH (09:00)
[2016-12-04] MEDS ORDERED: NIFEdipine (XL) 30 MG TAB PO SCH (09:00)
[2016-12-04] MEDS ORDERED: TRIAMTERENE/HCTZ (75-50) TAB PO SCH (09:00)
[2016-12-04] MEDS ORDERED: TORSEMIDE PO SCH (09:00)
[2016-12-04] MEDS: LOSARTAN 50 MG TAB PO SCH (11:26)
--- NOTE | 2016-12-04 15:22 | PDOCDIS ---
Discharge Instructions DIAGNOSIS Discharge Diagnosis Dizziness, chest pain, SOB Likely costochondritis CONDITION Patient Condition: Good HOME CARE INSTRUCTIONS: Diet Instructions: Regular ACTIVITY: Activity Restrictions: No Restrictions FOLLOW UP/APPOINTMENTS Follow-up Plan Follow up with your doctor at [facility] within the next 1-2 weeks if possible Return to the ED if you experience worsening symptoms, shortness of breath, chest pain, or any other concerns You should discuss your medications with your doctor in clinic LYDIA LUCIA MD Dec 04, 2016 15:22
--- NOTE | 2016-12-04 15:25 | DS ---
Date/Time of Note Date/Time of Note DATE: 12/04/16 TIME: 15:23 Discharge Summary Admission/Discharge Info Admit Date/Time Dec 03, 2016 at 12:46 Discharge Date/Time Discharge Diagnosis Dizziness, chest pain, SOB Likely costochondritis Patient Condition: Good Hx of Present Illness 86 yo F with pmhx multiple CVAs, h/o PM placement for "arrhythmia," h/o CAD, HTN , ?AFib presents for 1 day of R sided chest heaviness. Pt reports discomfort started yesterday and has been worsening since last night. Also has had SOB x several years worsening in the past 2 mos. 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 No orthopnea. No LE swelling. Pt reports chronic LLE weakness since her stroke Hospital Course The patient underwent chest CT-A which was negative for pulmonary embolism. Her cardiac biomarkers were also negative. Her symptoms had improved by day after presentation. She had an episode of hypotension and dizziness, likely from excess antihypertensive medications. She was encouraged to discuss her medication regimen as soon as possible with her outpatient doctor at [facility] Reported Medications Triamterene/Hctz (Maxzide (75-50)*) 1 Tab Tablet, 1 TAB PO DAILY, TAB 12/03/16 Atorvastatin Calcium (Atorvastatin Calcium) 10 Mg Tablet, 10 MG PO QHS, #30 TAB 12/03/16 Rivaroxaban* (Xarelto*) 20 Mg Tablet, 20 MG PO WITH DINNER, TAB 12/03/16 Aspirin (Low Dose Aspirin) 81 Mg Tablet.dr, 81 MG PO DAILY, #30 TAB 12/03/16 Losartan Potassium* (Losartan Potassium*) 50 Mg Tablet, 50 MG PO BID, TAB 12/03/16 Discontinued Reported Medications Metoprolol Tartrate* (Lopressor*) 25 Mg Tab, 12.5 MG PO DAILY Y for PRN, #60 TAB 08/06/16 Tolbutamide (Tolbutamide) Unknown Strength Tablet, MG PO DAILY Y for PRN, TAB 08/06/16 [Betaseron] No Conflict Check, PO BID TAKE 1/2 TAB 08/06/16 Clopidogrel Bisulfate* (Clopidogrel Bisulfate*) 75 Mg Tablet, 75 MG PO DAILY, # 30 TAB 08/06/16 Torsemide (Torsemide) Unknown Strength Tablet, 1 TAB PO DAILY, TAB 08/06/16 Valsartan* (Diovan*) 160 Mg Tablet, 80 MG PO BID, TAB 08/06/16 Nifedipine* (Procardia*) 10 Mg Capsule, 10 MG PO Q6 Y for PRN, CAP 08/06/16 [Cordicet] No Conflict Check, PO DAILY Y for PRN 08/06/16 Discontinued Scripts Albuterol Sulfate* (Proair HFA*) 8.5 Gm Hfa.aer.ad, 2 PUFF INH Q4H Y for WHEEZING AND SOB, #1 INHALER Prov:CURT METZGER MD 08/06/16 Prednisone* (Prednisone*) 20 Mg Tab, 40 MG PO DAILY for 4 Days, TAB start 08/07 Prov:CURT METZGER MD 08/06/16 Primary Care Provider Care Physician No Primary Pending Labs Laboratory Tests Test 12/03/16 17:19 12/03/16 22:31 12/04/16 05:59 Creatine Kinase 40IU/L (23-200) 35IU/L (23-200) Creatine Kinase Index 1.5 1.8 Creatinine Kinase MB (Mass) 0.60ng/ml (0.0-2.4) 0.64ng/ml (0.0-2.4) Troponin I < 0.012ng/ml (0.00-0.12) < 0.012ng/ml (0.00-0.12) 0.016ng/ml (0.00-0.12) Sodium Level 141mmol/L (135-144) Potassium Level 4.3mmol/L (3.5-5.1) Chloride Level 101mmol/L (97-110) Carbon Dioxide Level 29mmol/L (21-31) Anion Gap 15 (8-16) Blood Urea Nitrogen 16mg/dl (7-20) Creatinine 0.85mg/dl (0.44-1.00) Glucose Level 97mg/dl (70-220) Calcium Level 8.9mg/dl (8.4-10.2) LYDIA LUCIA MD Dec 04, 2016 15:25
[2016-12-04] MEDS ORDERED: RIVAROXABAN 15 MG TABLET PO SCH (17:55)
--- NOTE | 2016-12-04 19:03 | RADRPT ---
Vent Rate: 70 bpm RR Interval: 0 msec [place] Interval: 0 msec QRS Duration: 170 msec QT Interval: 490 msec QTC Interval: 529 msec P-R-T [place]: 0 - -75 - 89 degrees Electronic ventricular pacemaker Electronically Signed By: Deejay Ovalle [phone]
== END 2016-12-04 17:14 | disposition home or self-care (01) | DRG 206 ==
LOC: E/R 10:37 → MS3 12:46 → TEL 17:43
PROVIDERS: ADMIT Internal Medicine; ATTEND Internal Medicine
DX: M94.0 Chondrocostal junction syndrome [Tietze] (principal); E11.9 Type 2 diabetes mellitus without complications; I10 Essential (primary) hypertension; R07.89 Other chest pain; R42 Dizziness and giddiness; I25.10 Atherosclerotic heart disease of native coronary artery without angina pectoris; Z79.4 Long term (current) use of insulin; Z79.02 Long term (current) use of antithrombotics/antiplatelets; Z79.82 Long term (current) use of aspirin; Z95.0 Presence of cardiac pacemaker; Z98.42 Cataract extraction status, left eye; Z86.73 Personal history of transient ischemic attack (TIA), and cerebral infarction without residual deficits
CPT/HCPCS: 36415; 71010; 80048; 82550; 82553; 83880; 84484; 85025; 85610; 85730; 93005; 93306; J2270

== ENCOUNTER 2017-07-29 13:41 | Observation (INO) | END 2017-07-30 21:00 | disposition home or self-care (01) ==